=== PATIENT | male | born 1960 | race Caucasian/White ===

== ENCOUNTER 2020-10-14 13:49 | Observation (INO) | payer SELFPAY ==
[2020-10-14] MEDS ORDERED: Acetaminophen 325 MG TAB PO PRN (15:44)
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
[2020-10-14] MEDS ORDERED: hydrALAZINE 20 MG/ML VIAL SLOW IVP PRN (15:57)
[2020-10-14 20:00] VITALS: BMI 35.1
[2020-10-14] MEDS: Atorvastatin Calcium 40 MG TAB PO SCH (21:00)
[2020-10-15 05:30] LABS: Cardiac Risk 3.1 (Less than 4.5)
--- NOTE | 2020-10-15 08:33 | ULT ---
BILATERAL CAROTID DUPLEX ULTRASOUND: HISTORY: History of CVA TECHNIQUE: Grayscale, color-flow and spectral Doppler ultrasound imaging of the extracranial carotid artery syst ems and vertebral arteries was performed bilaterally. FINDINGS: Mild intimal thickening is seen involving the common carotid arteries and proximal internal carotid a rteries. There is mild partial calcified atherosclerotic plaque involving the origin of the right external carotid artery. The peak systolic velocity in the right ICA measures 51.0 cm/s. The peak systolic velocity in the ri ght CCA measures 76.9 cm/s. The peak systolic velocity in the left ICA measures 47.4 cm/s. The peak systolic velocity in the l eft CCA measures 85.1 cm/s. The right IC/CC ratio is0.66. The left IC/CC ratio is 0.56. Vertebral flow: antegrade, bilaterally. . IMPRESSION: No hemodynamically significant stenosis of Both ICAs.
[2020-10-15] MEDS ORDERED: FAMOTIDINE PO PRN (09:00)
[2020-10-15] MEDS ORDERED: CA CARB PO PRN (09:00)
[2020-10-15] MEDS ORDERED: MAG HYDROX PO PRN (09:00)
[2020-10-15] MEDS ORDERED: [UNRECOGNIZED DRUG - OTHER] PO PRN (09:00)
[2020-10-15] MEDS: Aspirin 81 mg Enteric Coated Tablet PO SCH (09:27)
[2020-10-15] MEDS ORDERED: Calcium Carbonate 500 MG ChewTAB PO PRN (09:42)
[2020-10-15] MEDS ORDERED: Famotidine 20 MG TAB PO PRN (09:44)
--- NOTE | 2020-10-15 11:43 | MRI ---
Exam: Brain MRI without contrast HISTORY: Left arm and leg weakness x1 week. Evaluate for stroke. COMPARISON: None FINDINGS: Calvarial marrow signal intensity: Appropriate T1 signal Gradient echo sequence: No hemorrhage Brain parenchyma: Cerebrum: No mass, mass effect or midline shift. Brain volume, age-appropriate. Brainstem: There is T2 and FLAIR white matter hyperintensity involving the right aspect of the midbra in and lisa. Cortical kaufman-white matter differentiation: Preserved Restricted diffusion: Central arterial flow voids are maintained. Restricted diffusion in the right a spect of the midbrain and lisa corresponding to a forementioned T2 and FLAIR hyperintensity. White matter signal intensities: T2, FLAIR white matter hyperintensities due to chronic small vessel ischemic changes. Cavitary lacunar infarct involving the right palm radiata, corresponding to finding on recent CT. Sinuses: Left maxillary sinus disease. IMPRESSION: 1. Acute infarct involving the right midbrain and lisa.
[2020-10-15 12:19] LABS: SARS-CoV-2 MS2 Positive; SARS-CoV-2 N Gene Negative; SARS-CoV-2 S Gene Negative; SARS-CoV-2 by NAA Not Detected (NotDetected); SARS-CoV-2 orf1ab Negative
--- NOTE | 2020-10-15 17:54 | PDOC.HOSPP ---
- Subjective Encounter Date: 10/15/20 Encounter Time: 17:52 Subjective: pt up in bed no complains. - Objective Vital Signs & Weight: Vital Signs (12 hours) Temp Pulse Resp BP BP Pulse Ox 10/15/20 16:16 158/92 H 10/15/20 15:58 97.9 F 59 L 19 94 L 10/15/20 12:05 158/88 H 10/15/20 11:43 98.2 F 60 12 98 10/15/20 08:50 132/76 10/15/20 07:42 98.1 F 93 20 138/65 95 10/15/20 07:20 98.3 F 63 19 132/73 97 Weight Weight 237 lb 11.2 oz I&O: 10/14/20 10/15/20 10/16/20 06:59 06:59 06:59 Intake Total 800 1000 Balance 800 1000 Hospitalist ROS - Review of Systems Cardiovascular: denies: chest pain, palpitations, orthopnea, paroxysmal noc. dyspnea, edema, light headedness, other Gastrointestinal: denies: nausea, vomiting, abdominal pain, diarrhea, constipation, melena, hematochezia, other Genitourinary: denies: dysuria, frequency, incontinence, hematuria, retention, other - Medication Medications: Active Medications Generic Name Dose Route Start Last Admin Trade Name Justinq PRN Reason Stop Dose Admin Aspirin 81 mg 10/15/20 09:00 10/15/20 09:27 Aspirin 81 Mg Enteric Coated Tablet PO 81 mg DAILY COLLIN Administration Atorvastatin Calcium 40 mg 10/14/20 21:00 10/14/20 21:00 Atorvastatin Calcium 40 Mg Tab PO 40 mg HS COLLIN Administration - Exam Heart: negative: RRR, no murmur, no gallops, no rubs, normal peripheral pulses, irregular, diminshed peripheral pulses, murmur present, II/IV, III/IV Respiratory: negative: CTAB, no wheezes, no rales, no ronchi, normal chest expansion, no tachypnea, normal percussion, rales, rhonchi, tachypneic, wheezes Gastrointestinal: negative: soft, non-tender, non-distended, normal bowel sounds, no palpable masses, no hepatomegaly, no splenomegaly, no bruit, no guarding, no rigidity, tender to palpation, distended, diminished bowl sounds, voluntary guarding Extremities: 1+ LE edema Extremities - other findings: left upper and lower ext weakness Hosp A/P (1) CVA (cerebral vascular accident) Code(s): I63.9 - CEREBRAL INFARCTION, UNSPECIFIED Status: Acute (2) Elevated blood pressure reading Code(s): R03.0 - ELEVATED BLOOD-PRESSURE READING, W/O DIAGNOSIS OF HTN Status: Acute - Plan will continue asa/statin. will add bp meds. ekg normal. possible discharge in am.
--- NOTE | 2020-10-15 18:50 | CON ---
NEUROLOGY CONSULTATION DATE OF CONSULTATION: 10/15/2020 REASON FOR CONSULTATION: CVA. HISTORY OF PRESENT ILLNESS: Mr. Deleon is a 60-year-old male with no significant medical history since he does not like following with PCP, presented with left arm weakness and left facial droop. Per , he woke up 8 days ago and his left arm was feeling weak. 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 He denies any specific weakness in the left leg. This has been going on since the last 8 days and his decided to bring him to the emergency room for further evaluation. The does report that his speech is slurred, but he has no difficulty in swallowing. The patient denies nausea, vomiting, headache, chest pain, abdominal pain, focal paresthesias, vertigo, double vision, blurred vision, or loss of consciousness associated with this episode. In the emergency room, head CT was done, which showed right lacunar infarct consistent with his current symptoms. He was given aspirin and admitted for further evaluation. REVIEW OF SYSTEMS: All systems reviewed and were negative except the pertinent positives and negatives mentioned in the HPI. MEDICATIONS: None. PAST MEDICAL HISTORY: No significant past medical history. PAST SURGICAL HISTORY: Appendectomy. FAMILY HISTORY: Significant for coronary artery disease in the father. SOCIAL HISTORY: The patient lives with family. Denies smoking. He snuffs one can per week of tobacco. Drinks alcohol 1 beer per day after work and has used cocaine and methamphetamine occasionally. ALLERGIES: NKDA Vital Signs & Weight: Vital Signs (12 hours) Temp Pulse Resp BP BP Pulse Ox 10/15/20 16:16 158/92 H 10/15/20 15:58 97.9 F 59 L 19 94 L 10/15/20 12:05 158/88 H 10/15/20 11:43 98.2 F 60 12 98 10/15/20 08:50 132/76 10/15/20 07:42 98.1 F 93 20 138/65 95 10/15/20 07:20 98.3 F 63 19 132/73 97 Weight Weight 237 lb 11.2 oz I&O: 10/14/20 10/15/20 10/16/20 06:59 06:59 06:59 Intake Total 800 1000 Balance 800 1000 Active Medications Generic Name Dose Route Start Last Admin Trade Name Freq PRN Reason Stop Dose Admin Aspirin 81 mg 10/15/20 09:00 10/15/20 09:27 Aspirin 81 Mg Enteric Coated Tablet PO 81 mg DAILY COLLIN Administration Atorvastatin Calcium 40 mg 10/14/20 21:00 10/14/20 21:00 Atorvastatin Calcium 40 Mg Tab PO 40 mg HS COLLIN Administration PHYSICAL EXAMINATION: GENERAL APPEARANCE: NAD. CVS: Regular rate and rhythm. CHEST: Clear. ABDOMEN: Soft. NECK: Supple. NEUROLOGICAL EXAMINATION: Mental status: The patient is alert and oriented to person, place, and time. Has dysarthria. Fund of knowledge is appropriate. Recent and remote memory intact. Cranial nerves 2 through 12 intact except 7, mild left facial droop. Motor, muscle tone and bulk are normal. Strength 5/5 bilaterally except left upper extremity 3+/5. Cerebellar finger-nose testing slow on the left secondary to weakness. Sensory intact. Gait deferred due to patient's safety reason. Data reviewed. I reviewed the labs which are essentially unremarkable. Head CT reviewed, which showed lacunar infarct in the right internal capsule. ASSESSMENT AND PLAN: (1) CVA (cerebral vascular accident) Code(s): I63.9 - CEREBRAL INFARCTION, UNSPECIFIED Status: Acute (2) Elevated blood pressure reading Code(s): R03.0 - ELEVATED BLOOD-PRESSURE READING, W/O DIAGNOSIS OF HTN Status: Acute Mr. Daren Deleon is a 60-year-old male who presented with left upper extremity weakness with left facial droop and dysarthria. MRI of the brain reviewed which was consistent with subacute infarction in the right midbrain and the lisa and also in the internal capsule, which is consistent with his symptoms. Carotid Dopplers reviewed which were negative for acute intracranial hemodynamically significant stenosis. 2D echo showed normal left ventricular ejection fraction. No thrombus or PFO. Strict control of blood pressure and blood glucose. Check hemoglobin A1c, fasting lipid panel, and TSH. Start aspirin and high-intensity statin for secondary stroke prevention PT/OT/Speech. Continue medical management per primary team. We will continue to follow. Thank you for the consult. Plan discussed in detail with the patient and the patient's at bedside, nursing staff and also with the primary attending, Dr. Garza. Job ID: [id number] [facility]
[2020-10-15] MEDS: Atorvastatin Calcium 40 MG TAB PO SCH (22:01)
[2020-10-16] MEDS: Aspirin 81 mg Enteric Coated Tablet PO SCH (08:41)
[2020-10-16] MEDS ORDERED: Amlodipine 5 MG TAB PO SCH (09:00)
[2020-10-16 11:13] VITALS: TEMP 98.1
[2020-10-16 12:31] VITALS: BP 146/78
--- NOTE | 2020-10-16 13:57 | PDOC.NEUPN ---
- Subjective Encounter Date: 10/16/20 Subjective: Patient feels better this morning. No acute events since the last 24 hours. - Objective Vital Signs & Weight: Vital Signs (12 hours) Temp Pulse Pulse Pulse Resp BP BP 10/16/20 11:09 98.1 F 70 16 10/16/20 09:26 70 72 146/78 H 159/80 H 10/16/20 08:41 64 10/16/20 07:37 98.2 F 62 16 10/16/20 03:41 98.0 F 63 18 BP BP Pulse Ox 10/16/20 11:09 144/79 H 99 10/16/20 09:26 10/16/20 08:41 10/16/20 07:37 150/80 H 95 10/16/20 03:41 162/80 H 96 Weight Weight 237 lb 11.2 oz I&O: 10/15/20 10/16/20 10/17/20 06:59 06:59 06:59 Intake Total 800 1250 360 Balance 800 1250 360 Radiology Reviewed by me: Yes EKG Reviewed by me: Yes ROS - Review of Systems Constitutional: denies: fever, chills, sweats, weakness, malaise, other Eyes: denies: pain, vision change, conjunctivae inflammation, eyelid inflammation, redness, other ENT: denies: ear pain, ear discharge, nose pain, nose discharge, nose congestion, mouth pain, mouth swelling, throat pain, throat swelling, other Respiratory: denies: cough, dry, shortness of breath, hemoptysis, SOB with excertion, pleuritic pain, sputum, wheezing, other Gastrointestinal: denies: nausea, vomiting, abdominal pain, diarrhea, constipation, melena, hematochezia, other Genitourinary: denies: dysuria, frequency, incontinence, hematuria, retention, other Musculoskeletal: denies: neck pain, shoulder pain, arm pain, back pain, hand pain, leg pain, foot pain, other Skin: denies: rash, lesions, charlene, bruising, other Neurological: reports: weakness. denies: numbness, incoordination, change in speech, confusion, seizures, other All Systems: All other systems reviewed; all pertinent +/- noted in HPI/Subj - Medication Medications: Active Medications Generic Name Dose Route Start Last Admin Trade Name Freq PRN Reason Stop Dose Admin Amlodipine Besylate 5 mg 10/16/20 09:00 10/16/20 08:41 Amlodipine 5 Mg Tab PO 5 mg DAILY COLLIN Administration Aspirin 81 mg 10/15/20 09:00 10/16/20 08:41 Aspirin 81 Mg Enteric Coated Tablet PO 81 mg DAILY COLLIN Administration Atorvastatin Calcium 40 mg 10/14/20 21:00 10/15/20 22:01 Atorvastatin Calcium 40 Mg Tab PO 40 mg HS COLLIN Administration Sodium Chloride 10 ml 10/14/20 15:45 10/16/20 08:42 Flush - Normal Saline 10 Ml Syringe IVF 10 ml PRN PRN Administration Saline Flush - Exam General Appearance: awake alert Eye: PERRL ENT: normocephalic atraumatic Neck: supple Respiratory: CTAB Cardiovascular: RRR Gastrointestinal: soft Extremities: no cyanosis Skin: normal turgor Neurological: no new deficit Musculoskeletal: normal tone, no muscle wasting PSYCH: normal affect, normal behavior, A&O x 3, oriented to person, oriented to place, oriented to time Results - Radiology Interpretation MRI - head Additional Comment: Acute infarct in midbrain and right lisa. PN A/P (1) Hypertension Code(s): I10 - ESSENTIAL (PRIMARY) HYPERTENSION Status: Acute (2) CVA (cerebral vascular accident) Code(s): I63.9 - CEREBRAL INFARCTION, UNSPECIFIED Status: Acute - Plan Daily Plan: PT/OT, speech therapy, out of bed/ambulate 60 year old presented with LUE weakness. Imaging positive for acute infarction. MRI brain reviewed and was negative for acute infarction of the midbrain and lisa 2D echo showed LVEF 55-60 %. No thrombus or PFO. CD did not reveal hemodynamically significant stenosis. Telemetry Continue aspirin and high intensity statin for secondary stroke prevention. Neurochecks every 4 hours. PT/OT./Speech. Strict BP and BG control. Continue medical management per primary team. Plan discussed in detail with the patient and the nursing staff.
--- NOTE | 2020-10-17 10:56 | DIS ---
DATE OF ADMISSION: 10/14/2020 DATE OF DISCHARGE: 10/16/2020 DISCHARGE DIAGNOSES: 1. Acute stroke. 2. Hypertension. 3. Obesity. HOSPITAL COURSE: The patient is a 60-year-old male, who initially presented to the hospital with left-sided weakness and some slurred speech. At this time, he was noted on the brain MRI to have a stroke. He had an acute infarct involving the right midbrain and lisa. He also had a cavitary lacunar infarct in the right palm radiata on the CT. He had carotid Dopplers and echocardiogram. Carotid Dopplers did not show any acute abnormalities. He also had an echocardiogram, which indicated an EF 55% to 60%. The patient was not taking any medications. He was put on aspirin and statin and his blood pressure medications, and was discharged home. He will require some occupational therapy given his left hand weakness and he is a elkins. PHYSICAL EXAMINATION: VITAL SIGNS: Temperature 98.1, 70, 16, 99% on room air, and 144/79. GENERAL: He is awake, alert, and oriented x3. Does not appear in distress. CVS: S1 and S2 present. No murmurs, rubs, or gallops. NEUROLOGIC: He does have some mild neurological abnormality in his left hand. Otherwise, the strength in the left arm is pretty good. DISCHARGE MEDICATIONS: He is on, 1. Aspirin 81 mg daily. 2. Atorvastatin 40 mg daily. 3. Amlodipine 5 mg daily. 4. He takes famotidine and Tums one p.r.n. Again, he will be discharged home. Followup with primary. Job ID: [id number]
== END 2020-10-16 14:09 | disposition home or self-care (01) ==
LOC: ERS 13:49 → 2SE 15:27
PROVIDERS: ADMIT Internal Medicine; ATTEND Internal Medicine
DX: I63.81 Other cerebral infarction due to occlusion or stenosis of small artery (principal); R29.810 Facial weakness; G83.24 Monoplegia of upper limb affecting left nondominant side; R29.703 NIHSS score 3; I10 Essential (primary) hypertension; J32.0 Chronic maxillary sinusitis; F17.220 Nicotine dependence, chewing tobacco, uncomplicated; E66.9 Obesity, unspecified; Z68.35 Body mass index [BMI] 35.0-35.9, adult; Z20.828 Contact with and (suspected) exposure to other viral communicable diseases
CPT/HCPCS: 36415; 70551; 80061; 84443; 87635; 93306; 93880; G0378; U0003